=== PATIENT | male | born 1990 | race Caucasian/White ===

== ENCOUNTER 2016-11-16 01:22 | Emergency (ER) | payer OTHER ==
[2016-11-16 02:40] LABS: BASO % 0.1 % (0-2); EOS % 2.4 % (0-7); EOSINOPHIL ABSOLUTE COUNT 0.2 tho/cmm (0.0-0.7); HCT-HEMATOCRIT 47.1 % (36.0-53.5); HGB-HEMOGLOBIN 16.7 gm/dl (13.5-17.0); IMMATURE GRANULOCYTES ABSOLUTE 0.02 tho/cmm (0-0.03); IMMATURE GRANULOCYTES PERCENT 0.2 % (0-0.3); LYMPH ABSOLUTE COUNT 3.4 tho/cmm (0.8-4.5); MCH (MEAN CORPUSCULAR HGB) 34.2 pg (28.0-32.0); MCHC MEAN CORPUSCULAR HGB CONC 35.5 % (32.0-36.0); MCV (MEAN CELL VOLUME) 96.3 fl (82.0-96.0); MEAN PLATELET VOLUME 10.3 cmc (9.4-12.4); MONO % 9.1 % (0-12); MONOCYTE ABSOLUTE COUNT 0.8 tho/cmm (0.0-1.2); NEUTROPHILS % 47.2 % (40-80); PLATELET COUNT 276 tho/cmm (150-450); RED BLOOD COUNT 4.89 mil/cmm (4.40-5.70); WHITE BLOOD COUNT 8.4 tho/cmm (4.0-10.0)
[2016-11-16 03:46] LABS: ALBUMIN 3.7 g/dl (3.5-5.0); ANION GAP 16 mmol/L (0-20); BLOOD UREA NITROGEN 9 mg/dl (6-24); CALCIUM 9.1 mg/dl (8.5-10.5); CARBON DIOXIDE-VENOUS 18 mmol/L (22-32); CHLORIDE 105 mmol/l (96-110); GLUCOSE 108 mg/dL (70-110); SODIUM 135 mmol/L (135-145)
[2016-11-16 03:47] LABS: POTASSIUM 3.9 mmol/L (3.7-5.1)
[2016-11-16 03:50] LABS: ALB/GLOB RATIO 0.8 (0.8-2.0); ALKALINE PHOSPHATASE 84 U/L (33-138); ALT/SGPT 80 U/L (12-78); AST/SGOT 40 U/L (10-40); BILIRUBIN,TOTAL 0.7 mg/dl (0.0-1.5); CREATININE 1.06 mg/dl (0.60-1.30); T4 (THYROXINE) 9.4 ug/dl (5.0-12.6); eGFR VALUE FOR BLACK >90 mL/Min
[2016-11-16 03:56] LABS: TSH-THYROID STIMULATING HORM. 5.08 uIU/ml (0.40-3.80)
== END 2016-11-16 04:45 ==
LOC: EDMED 01:22
PROVIDERS: Physician Assistant
DX: R00.0 Tachycardia, unspecified (principal); I25.10 Atherosclerotic heart disease of native coronary artery without angina pectoris